=== PATIENT | male | born 1950 | race Caucasian/White ===

== ENCOUNTER 2018-01-22 11:17 | Emergency (ER) | payer MEDICARE, BC ==
[2018-01-22 11:41] VITALS: BP 121/78
--- NOTE | 2018-01-22 11:53 | UC ---
Complaint Male HPI - HPI Summary HPI Summary: Dysuria and frequency starting last night. No fever or chills or flank pain. - History of Current Complaint Chief Complaint: UCGU Stated Complaint: URINARY Time Seen by Provider: 01/22/18 11:40 Hx Obtained From: Patient Onset/Duration: Gradual Onset, Lasting Hours Timing: Constant, Lasting Hours Severity Initially: Moderate Severity Currently: Mild Pain Intensity: 2 Location: None Aggravating Factor(s): Voiding Alleviating Factor(s): Nothing Associated Signs And Symptoms: Negative: Back Pain, Fever, Hematuria, Dysuria, Constipation, Blood in Stool, Rectal Pain, Nausea, Vomiting(# Of Episodes =) - Allergies/Home Medications Allergies/Adverse Reactions: Allergies Allergy/AdvReac Type Severity Reaction Status Date / Time No Known Allergies Allergy Verified 09/17/14 14:00 Home Medications: Home Medications Omeprazole 20 mg PO DAILY PRN 01/22/18 [History Confirmed 01/22/18] Rosuvastatin Calcium [Crestor] 5 mg PO DAILY 01/22/18 [History Confirmed ] PMH/Surg Hx/FS Hx/Imm Hx Previously Healthy: No - prior uti 4 years ago feels similar to this. - Surgical History Surgical History: Yes Surgery Procedure, Year, and Place: TONSILLECTOMY. COLONOSCOPIES WITH POLYPECTOMY - Family History Known Family History: Positive: Other - no related prostate disease. - Social History Lives: With Family Alcohol Use: None Substance Use Type: None Smoking Status (MU): Never Smoked Tobacco Review of Systems Genitourinary: Dysuria, Frequency All Other Systems Reviewed And Are Negative: Yes Physical Exam Triage Information Reviewed: Yes Appearance: Well-Appearing, Obese Vital Signs: Initial Vital Signs Temp 97.2 F 01/22/18 11:29 Pulse 71 01/22/18 11:29 Resp 17 01/22/18 11:29 BP 121/78 01/22/18 11:29 Pulse Ox 97 01/22/18 11:29 Vital Signs Reviewed: Yes Eyes: Positive: Conjunctiva Clear ENT: Positive: Normal ENT inspection, Pharynx normal Neck: Positive: Supple, Nontender, No Lymphadenopathy Respiratory: Positive: No accessory muscle use. Negative: Respiratory distress Cardiovascular: Positive: Pulses Normal, Brisk Capillary Refill Abdomen Description: Positive: No Organomegaly, Soft. Negative: CVA Tenderness (R), CVA Tenderness (L) Musculoskeletal: Positive: No Edema Neurological: Positive: Alert, Muscle Tone Normal Psychological: Positive: Age Appropriate Behavior Skin: Negative: rashes Complaint Male Course/Dx - Differential Dx/Diagnosis Provider Diagnoses: uti Discharge - Sign-Out/Discharge Documenting (check all that apply): Patient Departure All imaging exams completed and their final reports reviewed: No Studies - Discharge Plan Condition: Good Disposition: HOME Prescriptions: Sulfamethox/Trimethoprim DS* [Bactrim DS 800/160 TAB*] 1 tab PO BID #14 tab Patient Education Materials: Urinary Tract Infection in Older Adults (ED) Referrals: Sathya Guevara MD [Primary Care Provider] - If Needed - Billing Disposition and Condition Condition: GOOD Disposition: Home
== END 2018-01-22 11:59 | disposition home or self-care (01) ==
LOC: UCCORT 11:17
DX: N39.0 Urinary tract infection, site not specified (principal); B95.7 Other staphylococcus as the cause of diseases classified elsewhere
CPT/HCPCS: 81003; 87077; 87086; 87186; 99202; G0463

== ENCOUNTER 2018-02-05 17:18 | Emergency (ER) | payer MEDICARE, BC ==
[2018-02-05 17:33] VITALS: BP 136/74
[2018-02-05] MEDS ORDERED: Cephalexin CAP* 500 MG PO ONE (18:27)
--- NOTE | 2018-02-05 18:34 | UC ---
Complaint Male HPI - HPI Summary HPI Summary: 3 DAYS OF INCREASING DYSURIA, SUPRAPUBIC PRESSURE AND URINARY FREQUENCY. NO FEVER, NAUSEA, BACK PAIN. OF NOTE PATIENT WAS TREATED FOR A UTI WITH BACTRIM ON 01/22/18. CULTURE GREW STAPH EPIDERMIDIS. BACTRIM WAS NOT TESTED FOR SENSITIVITY BUT PATIENT WAS IMPROVING HE WAS ADVISED TO CONTINUE THE COURSE TO COMPLETION AND SEEK FOLLOW-UP IF HIS SYMPTOMS RETURNED. - History of Current Complaint Chief Complaint: UCGU Stated Complaint: URINARY Time Seen by Provider: 02/05/18 18:12 Hx Obtained From: Patient Onset/Duration: Gradual Onset, Lasting Days, Still Present Severity Initially: Moderate Severity Currently: Moderate Pain Intensity: 0 Pain Scale Used: 0-10 Numeric Location: Suprapubic Character: Burning Aggravating Factor(s): Voiding Alleviating Factor(s): Nothing Associated Signs And Symptoms: Positive: Dysuria - Allergies/Home Medications Allergies/Adverse Reactions: Allergies Allergy/AdvReac Type Severity Reaction Status Date / Time No Known Allergies Allergy Verified 02/05/18 17:30 Home Medications: Home Medications Aspirin 81 mg CHEW TAB* 81 mg PO DAILY 02/05/18 [History Confirmed 02/05/18] PMH/Surg Hx/FS Hx/Imm Hx Endocrine History: Hypothyroidism, Dyslipidemia Cardiovascular History: Hypertension GI/ History: Gastroesophageal Reflux - Surgical History Surgical History: Yes Surgery Procedure, Year, and Place: TONSILLECTOMY. COLONOSCOPIES WITH POLYPECTOMY - Family History Known Family History: Positive: Other - no related prostate disease. Negative: Hypertension - Social History Alcohol Use: None Substance Use Type: None Smoking Status (MU): Never Smoked Tobacco Review of Systems Constitutional: Negative Respiratory: Negative Cardiovascular: Negative Gastrointestinal: Abdominal Pain Genitourinary: Dysuria, Frequency, Urgency All Other Systems Reviewed And Are Negative: Yes Physical Exam Triage Information Reviewed: Yes Appearance: Well-Appearing, No Pain Distress, Well-Nourished Vital Signs: Initial Vital Signs Temp 97.5 F 02/05/18 17:24 Pulse 85 02/05/18 17:24 Resp 14 02/05/18 17:24 BP 136/74 02/05/18 17:24 Pulse Ox 97 02/05/18 17:24 Laboratory Tests 02/05/18 18:08 POC Urine Color Yellow POC Urine Clarity Cloudy POC Urine pH 6.5 POC Ur Specif [place] 1.020 POC Urine Protein Trace A POC Ur Glucose (UA) Negative POC Urine Ketones Negative POC Urine Blood Trace-lysed A POC Urine Nitrite Negative POC Urine Bilirubin Negative POC Urine Urobilinogen 1.0 POC U Leukocyte Esteras 3+ A Vital Signs Reviewed: Yes Eyes: Positive: Conjunctiva Clear ENT: Positive: Hearing grossly normal Neck: Positive: Supple Respiratory: Positive: No respiratory distress, No accessory muscle use Cardiovascular: Positive: Pulses Normal Abdomen Description: Positive: Soft, Other: - MILD SUPRAPUBIC TENDERNESS. Negative: CVA Tenderness (R), CVA Tenderness (L), Distended, Guarding Musculoskeletal: Positive: No Edema Neurological: Positive: Alert Psychological: Positive: Age Appropriate Behavior Skin: Negative: rashes Complaint Male Course/Dx - Differential Dx/Diagnosis Provider Diagnoses: UTI Discharge - Sign-Out/Discharge Documenting (check all that apply): Patient Departure All imaging exams completed and their final reports reviewed: No Studies - Discharge Plan Condition: Stable Disposition: HOME Prescriptions: Cephalexin CAP* [Keflex 500 CAP*] 500 mg PO BID #13 cap Patient Education Materials: Urinary Tract Infection in Men (ED) Referrals: Sathya Guevara MD [Primary Care Provider] - If Needed Additional Instructions: TAKE THE ANTIBIOTIC TWICE DAILY FOR 7 DAYS. STAY WELL HYDRATED. URINE SPECIMEN SENT FOR CULTURE. WE WILL CALL YOU IF YOUR MEDICATION NEEDS TO BE CHANGED. IF YOU DEVELOP RECURRENT UTI SYMPTOMS AGAIN IN A SIMILARLY SHORT PERIOD OF TIME CONSIDER FOLLOWING UP WITH UROLOGY TO EVALUATE FOR UNDERLYING CAUSE OF RECURRENT UTI. DISCUSS THIS WITH YOUR PCP IF NEEDED. - Billing Disposition and Condition Condition: STABLE Disposition: Home
--- NOTE | 2018-02-08 08:15 | UC ---
- Progress Note Progress Note: urine + staoph epidermidis on cephalexin await sensitivity no change Tungj 02/08/2018 Discharge - Sign-Out/Discharge Documenting (check all that apply): Post-Discharge Follow Up All imaging exams completed and their final reports reviewed: No Studies - Discharge Plan Condition: Stable Disposition: HOME Prescriptions: Cephalexin CAP* [Keflex 500 CAP*] 500 mg PO BID #13 cap Patient Education Materials: Urinary Tract Infection in Men (ED) Referrals: Sathya Guevara MD [Primary Care Provider] - If Needed Additional Instructions: TAKE THE ANTIBIOTIC TWICE DAILY FOR 7 DAYS. STAY WELL HYDRATED. URINE SPECIMEN SENT FOR CULTURE. WE WILL CALL YOU IF YOUR MEDICATION NEEDS TO BE CHANGED. IF YOU DEVELOP RECURRENT UTI SYMPTOMS AGAIN IN A SIMILARLY SHORT PERIOD OF TIME CONSIDER FOLLOWING UP WITH UROLOGY TO EVALUATE FOR UNDERLYING CAUSE OF RECURRENT UTI. DISCUSS THIS WITH YOUR PCP IF NEEDED. - Billing Disposition and Condition Condition: STABLE Disposition: Home
== END 2018-02-05 18:34 | disposition home or self-care (01) ==
LOC: UCCORT 17:18
DX: N39.0 Urinary tract infection, site not specified (principal); I10 Essential (primary) hypertension
CPT/HCPCS: 81003; 87077; 87086; 87186; 99212; A9270-GY; G0463

== ENCOUNTER 2018-11-27 05:44 | Observation (INO) | payer MEDICARE, BC ==
--- NOTE | 2018-11-21 18:39 | HP ---
CC: Dr. Guevara; Dr. Grove * ADMITTING HISTORY AND PHYSICAL: DATE OF ADMISSION: 11/28/18 ADMITTING DIAGNOSES: 1. Prostate enlargement. 2. Urinary retention. PLANNED PROCEDURE: Transurethral resection of prostate. SURGEON: Dr. Grove HISTORY OF PRESENT ILLNESS: Hernán Wick is a 68-year-old gentleman who has had urinary retention and history of recurrent urinary tract infection secondary to prostate enlargement. He had initially been evaluated in [place] approximately 10 to 12 months ago and at that time was noted to be retaining about a liter of urine in his bladder. He has been managed with self catheterization and cystoscopy done in my office in September had revealed enlarged, obstructing prostate with a heavily tuberculated bladder and multiple small bladder diverticula. He desires and is now being brought in for transurethral resection of prostate. I have discussed the procedure in detail including possible risks of bleeding, infection, permanent retrograde ejaculation, erectile dysfunction and incontinence. PAST MEDICAL HISTORY: Significant for high cholesterol and hypothyroidism. MEDICATIONS ON ADMISSION: 1. Rosuvastatin 10 mg daily. 2. Fenofibrate 160 mg daily. 3. Levothyroxine 125 mcg daily. 4. Triamterene/hydrochlorothiazide 37.5/25 two tablets daily. 5. Tamsulosin 0.4 mg daily. 6. Avodart 0.5 mg daily. 7. Vitamins and supplements. PAST SURGICAL HISTORY: Significant for tonsillectomy. ALLERGIES: No known drug allergies. FAMILY HISTORY: His younger brother has a history of prostate cancer. SMOKING HISTORY: He is a nonsmoker. REVIEW OF SYSTEMS: He is otherwise in excellent health. There is no history of diabetes mellitus or any other major systemic illness. He denies any chest pain or shortness of breath. PHYSICAL EXAMINATION GENERAL: Reveals a pleasant, middle-aged gentleman. VITAL SIGNS: Blood pressure is 142/80, pulse 70 per minute and regular, temperature 97.6, oxygen saturation 99% on room air. LUNGS: Clear bilaterally. CARDIOVASCULAR EXAM: Regular rate and rhythm. S1, S2. IMPRESSION: A 68-year-old gentleman with a history of BPH and urinary retention who has been managed with self catheterization. PLAN: Planned procedure is transurethral resection of prostate. [id number]/[facility] #: [id number] [facility]
[~2018-11-27 05:44] MED LIST: Buffered Lidocaine 1% SYRIN* 1 ML/SYRINGE INTRADERM ONE
[2018-11-27] MEDS ORDERED: Famotidine IV* 10 MG/ML 2 ML (20 mg) IV ONE (06:00)
[2018-11-27] MEDS ORDERED: Famotidine IV* 10 MG/ML 2 ML (20 mg) ONE (06:27)
[2018-11-27] MEDS ORDERED: Buffered Lidocaine 1% SYRIN* 1 ML/SYRINGE INTRADERM ONE (06:27)
[2018-11-27] MEDS ORDERED: cefTRIAXone(*) 2 GM ADDV.VIAL IVPB ONE (06:30)
[2018-11-27 06:54] LABS: ABS Basophils 0.1 10^3/ul (0-0.2); ABS Eosinophils 0.3 10^3/ul (0-0.6); ABS Lymphocytes 2.4 10^3/ul (1.0-4.8); ABS Monocytes 0.7 10^3/ul (0-0.8); ABS Neutrophils 4.2 10^3/ul (1.5-7.7); Eosinophil % 3.5 %; Hematocrit 42 % (42-52); Lymphocyte % 31.4 %; Mean Corpuscular HGB Conc 36 g/dL (31-36); Mean Corpuscular Hemoglobin 31 pg (27-31); Mean Corpuscular Volume 87 fL (80-94); Mean Platelet Volume 7.5 fL (7.4-10.4); Platelet Count 243 10^3/uL (150-450); Red Blood Count 4.86 10^6 /uL (4.18-5.48); Red Cell Distribution Width 14 % (10-15); White Blood Count 7.8 10^3/uL (3.5-10.8)
[2018-11-27] MEDS: Lactated Ringers 1000 ML Bag* 1,000 ML IV SCH ×5 (06:54→19:37)
[2018-11-27] MEDS ORDERED: Gentamicin ADULT (*) 160 MG in NS 0.9% 100 ML* 100 ML IVPB ONE (07:00)
[2018-11-27 07:02] LABS: INR 1.07 (0.82-1.09)
[2018-11-27 07:11] LABS: BUN/Creatinine Ratio 15.5 (8-20); Blood Urea Nitrogen 22 mg/dL (6-24); CO2 Carbon Dioxide 22 mmol/L (22-32); Calcium 9.8 mg/dL (8.6-10.3); Chloride 103 mmol/L (101-111); EGFR African American 60.2 (>60); EGFR Non-African American 49.7 (>60); Glucose 117 mg/dL (70-100); Sodium 136 mmol/L (135-145)
[2018-11-27 07:20] LABS: Anion Gap 11 mmol/L (2-11)
[2018-11-27] MEDS ORDERED: Midazolam* 1 MG/ML 5 ML VIAL (5 MG) ONE (07:37)
[2018-11-27] MEDS ORDERED: fentaNYL* 50 MCG/ML 2 ML VIAL (100 MCG VIAL) ONE (07:37)
[2018-11-27] MEDS ORDERED: Ondansetron INJ* 2 MG/ML VIAL ONE (08:22)
[2018-11-27] MEDS ORDERED: Propofol* 10 MG/ML 20 ML BTL ONE ×2 (08:22→08:48)
[2018-11-27] MEDS ORDERED: Lidocaine 2% PF * 5 ML VIAL ONE (08:22)
[2018-11-27] MEDS ORDERED: HYDROmorphone INJ1* 1 MG/ML SYRINGE ONE (08:23)
[2018-11-27] MEDS ORDERED: DiMENhydriNATE IV* 50 MG/ML VIAL IV PUSH PRN (08:36)
[2018-11-27] MEDS ORDERED: Naloxone* 0.4 MG/ML 1 ML VIAL IV PRN (08:36)
[2018-11-27] MEDS ORDERED: oxyCODONE/Acetamin 5/325 MG* TAB PO PRN (08:36)
[2018-11-27] MEDS ORDERED: HYDROmorphone INJ1* 1 MG/ML SYRINGE IV PRN (08:36)
[2018-11-27] MEDS ORDERED: oxyCODONE/Acetamin 5/325 MG* TAB ONE (09:53)
--- NOTE | 2018-11-27 13:22 | OP ---
CC: Dr. Guevara * DATE OF OPERATION: 11/27/18 - ROOM #335 DATE OF : 52 SURGEON: Dr. Grove. ANESTHESIOLOGIST: Dr. Haas. ANESTHESIA: Spinal. PRE-OP DIAGNOSES: 1. Benign prostatic hypertrophy. 2. Urinary retention. POST-OP DIAGNOSES: 1. Benign prostatic hypertrophy. 2. Urinary retention. OPERATIVE PROCEDURE: 1. Transurethral resection of prostate. 2. Transurethral incision of bladder neck. COMPLICATIONS: None. BLOOD LOSS: 50 cc. CATHETER: 24-[place]. INDICATIONS: Hernán Wick is a 68-year-old gentleman with longstanding symptoms of voiding dysfunction secondary to prostate enlargement. He has been doing intermittent self-catheterization and now desires transurethral resection of prostate and is being brought in for the same. OPERATIVE FINDINGS: 1. Enlarged obstructing prostate. 2. Trabeculated bladder with multiple small diverticula. POSTOPERATIVE CONDITION: Stable. DESCRIPTION OF PROCEDURE: After induction of spinal anesthesia, the patient was placed in dorsal lithotomy position. Sequential compression devices were in place and functioning. A mild stricture was noted at the urethral meatus, which was carefully dilated. The remainder of the urethra was unremarkable. The prostate was moderately enlarged and obstructing. The bladder was trabeculated with multiple small diverticula. Transurethral resection of prostate was carried out from the bladder neck down to the veru. The lower of the prostate was resected first followed by the lateral lobe tissue and then the anterior tissue. Using a right angle knife electrode, a transurethral incision of the bladder neck was performed at the 5 and 7 o'clock positions in an effort to reduce the chances of a postoperative bladder neck contracture. The resected tissue was removed from the bladder using the Annette evacuator. At no point was the dissection carried distal to the veru in an effort to avoid any potential injury to the sphincter. At the end of the procedure, hemostasis appeared satisfactory and a 24-[place] was placed without difficulty. The patient tolerated the procedure satisfactorily and was transferred back to the recovery area in stable condition. [id number]/[facility] #: [id number] [facility] HOSPITALBrandy
[2018-11-27] MEDS ORDERED: Acetaminophen TAB* 325 MG PO PRN (17:29)
[2018-11-27] MEDS ORDERED: Magnesium Hydroxide LIQ* 30 ML UDC PO ONE (18:00)
[2018-11-27] MEDS ORDERED: Pantoprazole TAB * 40 MG TAB PO SCH (18:00)
[2018-11-27] MEDS: Docusate CAP* 100 MG PO SCH (20:59)
[2018-11-28] MEDS: Lactated Ringers 1000 ML Bag* 1,000 ML IV SCH ×2 (01:41→08:43)
[2018-11-28] MEDS ORDERED: Levothyroxine TAB* 100 MCG TAB PO SCH (06:00)
[2018-11-28 07:44] VITALS: BP 146/73
[2018-11-28] MEDS: Docusate CAP* 100 MG PO SCH (08:43)
[2018-11-28] MEDS ORDERED: Triamterene/HCTZ 37.5-25 MG* CAP PO SCH (09:00)
[2018-11-28] MEDS ORDERED: cefTRIAXone(*) 2 GM in NS 0.9% 100 ML* 100 ML IVPB ONE (09:00)
[2018-11-28] MEDS ORDERED: Vitamin E CAP* 400 UNIT PO SCH (09:00)
[2018-11-28] MEDS ORDERED: Cholecalciferol TAB* 1000 UNITS PO SCH (09:00)
--- NOTE | 2018-11-28 17:31 | DS ---
CC: Dr. Guevara * DISCHARGE SUMMARY: DATE OF ADMISSION: 11/27/18 DATE OF DISCHARGE: 11/28/18 ADMITTING DIAGNOSES: 1. Benign prostatic hypertrophy. 2. Urinary retention. SURGICAL PROCEDURE ON THIS ADMISSION: Transurethral resection of prostate on . SURGEON: Dr. Grove. HISTORY: Hernán Wick is a 68-year-old gentleman with a history of prostate enlargement leading to urinary retention. For details, please see admitting history and physical. HOSPITAL COURSE: On 11/27/18, Mr. Wick underwent transurethral resection of prostate under spinal anesthesia. Surgery was smooth and uneventful. He was kept overnight and I examined him in the evening of 11/27/18 and then again in the morning on 11/28/18. His [place] catheter was draining clear urine. He was discharged home in stable condition for followup as per outpatient for catheter removal. [id number]/[facility] #: [id number] [facility]
== END 2018-11-28 11:15 | disposition home or self-care (01) ==
LOC: OR 05:44 → SSU 09:23
PROVIDERS: ADMIT Urology; ATTEND Urology
DX: N40.1 Benign prostatic hyperplasia with lower urinary tract symptoms (principal); R33.8 Other retention of urine; Z79.899 Other long term (current) drug therapy; E03.9 Hypothyroidism, unspecified; E78.00 Pure hypercholesterolemia, unspecified; N32.3 Diverticulum of bladder
CPT/HCPCS: 36415; 80048; 85025; 85610; 88305; 93005; 96361; 96374; A9270-GY; G0378; J0696; J1170; J1580; J2250; J2405; J2704; J3010

== ENCOUNTER 2019-04-16 14:40 | Emergency (ER) | payer MEDICARE, BC ==
[2019-04-16 14:53] VITALS: BP 136/77
--- NOTE | 2019-04-16 15:08 | ED ---
Throat Pain/Nasal Congestion - HPI Summary HPI Summary: 68 yr old male with the complaint of frontal sinus pain. Onset of symptoms 10 days ago. He started with cold symptoms, he has had persistent coughing, sputum production and most notably frontal sinus pressure with post nasal drip. He has not had fever. He denies SOB. He has no other complaints. - History of Current Complaint Chief Complaint: UCGeneralIllness Time Seen by Provider: 04/16/19 14:50 - Allergies/Home Medications Allergies/Adverse Reactions: Allergies Allergy/AdvReac Type Severity Reaction Status Date / Time No Known Allergies Allergy Verified 11/27/18 06:48 PMH/Surg Hx/FS Hx/Imm Hx Endocrine/Hematology History: Reports: Hx Diabetes - PRE-A1C high normal range, Hx Thyroid Disease - HYPOTHYROID Cardiovascular History: Denies: Other Cardiovascular Problems/Disorders Respiratory History: Denies: Other Respiratory Problems/Disorders GI History: Reports: Hx Gastroesophageal Reflux Disease - Omeprazole, Hx Hiatal Hernia Denies: Other GI Disorders History: Reports: Other Problems/Disorders - Benign Prostate Hypertrophy- self catheterizes when needed Denies: Hx Kidney Infection Musculoskeletal History: Reports: Hx Bursitis - Shoulders Denies: Other Musculoskeletal History Sensory History: Reports: Hx Contacts or Glasses - Glasses Denies: Hx Hearing Aid Opthamlomology History: Reports: Hx Contacts or Glasses - Glasses Neurological History: Denies: Other Neuro Impairments/Disorders - Surgical History Surgery Procedure, Year, and Place: TONSILLECTOMY. COLONOSCOPIES WITH POLYPECTOMY-EGD Hx Anesthesia Reactions: No Infectious Disease History: No Infectious Disease History: Denies: Traveled Outside the [place] in Last 30 Days - Family History Known Family History: Positive: Other - no related prostate disease. Negative: Hypertension - Social History Alcohol Use: None Substance Use Type: Reports: None Smoking Status (MU): Never Smoked Tobacco Review of Systems Constitutional: Negative Positive: Other - sinus pressure post nasal drip. Positive: Cough All Other Systems Reviewed And Are Negative: Yes Physical Exam Triage Information Reviewed: Yes Vital Signs On Initial Exam: Initial Vitals Temp Pulse Resp BP Pulse Ox 97.8 F 94 17 136/77 96 04/16/19 14:51 04/16/19 14:51 04/16/19 14:51 04/16/19 14:51 04/16/19 14:51 Vital Signs Reviewed: Yes Appearance: Positive: Well-Appearing, No Pain Distress Skin: Positive: Warm, Skin Color Reflects Adequate Perfusion Head/Face: Positive: Normal Head/Face Inspection Eyes: Positive: EOMI ENT: Positive: Nasal congestion, TMs normal, Sinus tenderness Neck: Positive: Nontender Respiratory/Lung Sounds: Positive: Clear to Auscultation, Breath Sounds Present Cardiovascular: Positive: RRR. Negative: Murmur Abdomen Description: Negative: Distended Musculoskeletal: Positive: Strength/ROM Intact Neurological: Positive: Sensory/Motor Intact, Alert, Oriented to Person Place, Time, CN Intact II-III, Normal Gait, Speech Normal Psychiatric: Positive: Normal Diagnostics - Vital Signs Vital Signs Temp Pulse Resp BP Pulse Ox 04/16/19 14:51 97.8 F 94 17 136/77 96 - Laboratory Lab Statement: Any lab studies that have been ordered have been reviewed, and results considered in the medical decision making process. EENT Course/Dx - Course Course Of Treatment: 68 yr old with sinusitis. Rx with augmentin. - Diagnoses Provider Diagnoses: Sinusitis Discharge ED - Sign-Out/Discharge Documenting (check all that apply): Patient Departure All imaging exams completed and their final reports reviewed: No Studies - Discharge Plan Condition: Good Disposition: HOME Prescriptions: Amoxicillin/Clavulanate TAB* [Augmentin TAB 875*] 875 mg PO BID #20 tab Patient Education Materials: Sinusitis (ED) Referrals: Sathya Guevara MD [Primary Care Provider] - 2 Days - Billing Disposition and Condition Condition: GOOD Disposition: Home
== END 2019-04-16 15:10 | disposition home or self-care (01) ==
LOC: UCCORT 14:40
DX: J32.9 Chronic sinusitis, unspecified (principal); R05 Cough; E11.9 Type 2 diabetes mellitus without complications; K21.9 Gastro-esophageal reflux disease without esophagitis; Z79.899 Other long term (current) drug therapy
CPT/HCPCS: 99212; G0463